=== PATIENT | male | born 1985 | race Caucasian/White ===

== ENCOUNTER → 2016-12-30 | Outpatient (CLI) | payer OTHER ==
--- NOTE | 2016-12-30 11:04 | KCIC ---
MR left wrist without contrast dated 12/30/2016. No comparison available. CLINICAL INDICATION: Left wrist pain after hyperextension injury. Pain for 6 weeks. TECHNIQUE: Routine multiplanar multisequence MR imaging performed. FINDINGS: Patchy areas of bone marrow edema within the dorsal aspect of the distal capitate and the dorsal aspect of the triquetrum. There is cortical irregularity along the dorsal margin of the triquetrum. No definite fracture line. Bone marrow signal is otherwise homogeneous. Alignment is anatomic. Mild degenerative change of the pisotriquetral joint. Scapholunate and lunotriquetral ligaments are intact. No scapholunate dissociation. [place] fibrocartilage complex is intact. No apparent perforation or tear. There are several small cystic foci along the dorsal margin of the lunate bone and capitate measuring 2 to 3 mm in size. Flexor and extensor tendons are intact. No abnormality of the carpal tunnel or Guyon's canal. No significant joint effusion or loose body. Impression: 1. Focal edema within the dorsal aspect of the triquetrum with associated cortical irregularity. This may represent bone contusion or a small avulsion fracture. Recommend correlation with plain film radiographs. 2. Focal edema within the dorsal aspect of the distal capitate, likely bone contusion. No discrete fracture line. 3. Small cystic foci along the dorsal aspect of the lunate bone and capitate may represent loculated joint effusion or small ganglion cysts. 4. No apparent tendon or ligament abnormality. Electronically signed by: Teodoro Goodwin MD (12/30/2016 11:01 AM)
== END | disposition home or self-care (01) ==
LOC: KCIC MRI 09:26
PROVIDERS: ATTEND Family Medicine
DX: M25.532 Pain in left wrist (principal); I10 Essential (primary) hypertension
CPT/HCPCS: 73221